=== PATIENT | male | born 1945 | race Caucasian/White ===

== ENCOUNTER → 2016-12-04 | Outpatient (CLI) | payer MEDICARE | END | disposition home or self-care (01) | LOC: PCVCCLINIC 13:00 | PROVIDERS: ATTEND Internal Medicine | DX: I49.3 Ventricular premature depolarization (principal); E78.5 Hyperlipidemia, unspecified; Z79.82 Long term (current) use of aspirin; Z82.49 Family history of ischemic heart disease and other diseases of the circulatory system; Z88.0 Allergy status to penicillin; Z79.899 Other long term (current) drug therapy | CPT/HCPCS: 93005; G0463 ==

== ENCOUNTER → 2017-11-22 | Outpatient (CLI) | payer MEDICARE | END | disposition home or self-care (01) | LOC: PCVCCLINIC 10:35 | DX: E78.5 Hyperlipidemia, unspecified (principal); R00.2 Palpitations; I77.810 Thoracic aortic ectasia; R00.1 Bradycardia, unspecified; I49.3 Ventricular premature depolarization; Z88.0 Allergy status to penicillin; Z79.82 Long term (current) use of aspirin; Z79.899 Other long term (current) drug therapy | CPT/HCPCS: 80061; 93005; G0463 ==

== ENCOUNTER → 2018-10-31 | Outpatient (CLI) | payer MEDICARE ==
--- NOTE | 2018-10-31 10:04 | PCVCIMAG ---
APPROVED REPORT Study performed: 10/31/2018 09:18:03 EXAM: Comprehensive 2D, Doppler, and color-flow Echocardiogram Patient Location: Echo lab Status: routine BSA: 2.11 HR: 61 bpmBP: 140/100 mmHg Rhythm: NSR Other Information Study Quality: Good Risk Factors: Cardiac Risk Factors: Hyperlipidemia Indications PVC's. Dilated Ascending Aorta 2D Dimensions IVSd: 11.45 (7-11mm) LVDd: 46.63 mm PWd: 10.31 (7-11mm)Ascending Ao: 42.22 (22-36mm) LVDs: 34.78 (25-40mm) Left Atrium: 44.95 (27-40mm) Aortic Root: 36.54 mm LV Single Plane 4CH: 66.48 % LV Single Plane 2CH: 69.75 % Biplane EF: 68.0 % Volumes Left Atrial Volume (Systole) Single Plane 4CH: 77.00 mLSingle Plane 2CH: 51.86 mL LA ESV Index: 64.00 mL/m2 Aortic Valve AoV Peak Luis Antonio.: 1.79 m/s AO Peak Gr.: 13.61 mmHgLVOT Max P.70 mmHg LVOT Max V: 1.42 m/s Mitral Valve E/A Ratio: 0.6 MV Decel. Time: 234.73 ms MV E Max Luis Antonio.: 0.67 m/s MV A Luis Antonio.: 1.08 m/s TDI E/Lateral E': 8.38E/Medial E': 9.57 Medial E' Luis Antonio.: 0.07 m/s Preload (E/e): 7.00 (0-8m/s)Lateral E' Luis Antonio.: 0.08 m/s Pulmonary Valve PV Peak Gr.: 5.49 mmHg Pulmonary Vein P Vein S: 0.56 m/sP Vein A: 0.41 m/s P Vein D: 0.36 m/sP Vein A Dur.: 114.2 msec P Vein S/D Ratio: 1.56 Tricuspid Valve TR Peak Luis Antonio.: 2.63 m/s TR Peak Gr.: 27.70 mmHg Left Ventricle The left ventricle is normal size. There is normal LV segmental wall motion. There is normal left ventricular wall thickness. Left ventricular systolic function is normal. The left ventricular ejection fraction is within the normal range. LVEF is 60-65%. Mild diastolic dysfunction is present (impaired relaxation pattern). Right Ventricle The right ventricle is normal size. The right ventricular systolic function is normal. Atria The left atrium size is normal. The right atrium size is normal. Aortic Valve The aortic valve is normal in structure. No aortic regurgitation is present. There is no aortic valvular stenosis. Mitral Valve The mitral valve is normal in structure. There is no mitral valve regurgitation noted. No evidence of mitral valve stenosis. Tricuspid Valve The tricuspid valve is normal in structure. Trace tricuspid regurgitation. Pulmonic Valve The pulmonary valve is normal in structure. There is no pulmonic valvular regurgitation. Great Vessels The aortic root is normal in size. The ascending aorta is dilated (4.4 cm). IVC is normal in size and collapses >50% with inspiration. Pericardium There is no pericardial effusion. <Conclusion> Left ventricular systolic function is normal. There is normal LV segmental wall motion. LVEF is 60-65%. Mild diastolic dysfunction The aortic valve is normal in structure. No aortic regurgitation or stenosis The mitral valve is normal in structure. No mitral valve regurgitation. The ascending aorta is dilated (4.4 cm). Pulmonary artery pressure could not be reliably ascertained There is no pericardial effusion.
== END | disposition home or self-care (01) ==
LOC: PCVCIMAG 09:02
PROVIDERS: ATTEND Internal Medicine
DX: I49.3 Ventricular premature depolarization (principal); R00.2 Palpitations; I71.6 Thoracoabdominal aortic aneurysm, without rupture; E78.5 Hyperlipidemia, unspecified; Z88.0 Allergy status to penicillin
CPT/HCPCS: 36415; 80061; 93005; 93306; G0463

== ENCOUNTER → 2019-05-04 | Outpatient (CLI) | payer MEDICARE | END | disposition home or self-care (01) | LOC: PCVCCLINIC 14:28 | PROVIDERS: ATTEND Internal Medicine | DX: R00.2 Palpitations (principal); I49.3 Ventricular premature depolarization; I71.6 Thoracoabdominal aortic aneurysm, without rupture; R00.1 Bradycardia, unspecified; I10 Essential (primary) hypertension; E78.5 Hyperlipidemia, unspecified; Z88.0 Allergy status to penicillin; Z79.82 Long term (current) use of aspirin; Z79.899 Other long term (current) drug therapy | CPT/HCPCS: 36415; 80061; 93005; G0463 ==